=== PATIENT | male | born 1990 | race Caucasian/White ===

== ENCOUNTER 2017-04-29 18:06 | Emergency (ER) | payer OTHER ==
[~2017-04-29] VITALS: Ht 175.3 cm; Wt 83.1 kg
[2017-04-29 18:13] VITALS: TEMP 37.6; Ht 175.3 cm; Wt 83.1 kg
[2017-04-29] MEDS ORDERED: SODIUM CHLORIDE 0.9% 1000ML 1,000 ML IV STA ×2 (18:48→19:32)
[2017-04-29] MEDS ORDERED: MoRPHine SULFATE 4 MG/ML 1 ML CARP\\VIAL IV STA (18:48)
[2017-04-29] MEDS ORDERED: ONDANSETRON INJ 2 MG/ML 2 ML VIAL IV STA (18:48)
--- NOTE | 2017-04-29 19:04 | EMERGENCY ROOM VISIT NOTE ---
History Report prepared by Lavinia: José Luis Ovalle Under the Supervision of: Dr. Nic Brown M.D. First contact with patient: 18:15 Chief Complaint: DEHYDRATION Stated Complaint: FEELING DEHYDRATED, N/V Nursing Triage Summary: Pt reports "feeling sick" yesterday, worsening. pt c/o lower abd pain, n/v. 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 Positive light headedness, burning urinary symptoms, nausea, vomiting, and sweating. Negative leg swelling, penile discharge, cough, fever, chills, sore throat, or drinking well water. No one else is sick around him. He states that he cannot eat, and he smokes one cigarette per day. Source of History: patient Onset: two days ago Position: abdomen, other (global) Quality: sharp, other (dizziness) Timing: worsening Associated Symptoms: + nausea, + vomiting, + urinary symptoms, No fevers, No chills, No sorethroat, No cough Review of Systems See HPI for pertinent positives and negatives. A total of ten systems were reviewed and were otherwise negative. Past Medical & Surgical Medical Problems: (1) ADHD (2) PROSTATITIS NOS Surgical Problems: (1) H/O neck surgery Family History FH: heart disease Hypertension Social History Smoking Status: Former Smoker Marital Status: single Occupation Status: unemployed Current/Historical Medications Scheduled Dicyclomine Hcl (Bentyl), 20 MG PO QID Ondasetron Odt (Zofran Odt), 4 MG SL Q6H Tamsulosin Hcl (Flomax), 0.4 MG PO DAILY Allergies Coded Allergies: Amphetamine (Verified Allergy, Unknown, 04/29/17) Dextroamphetamine (Verified Allergy, Unknown, 04/29/17) Physical Exam Vital Signs Date Time Temp Pulse Resp B/P (MAP) Pulse Ox O2 Delivery O2 Flow Rate FiO2 04/29/17 20:59 99 16 150/84 97 04/29/17 20:11 76 16 144/94 99 Room Air 04/29/17 18:13 37.6 107 18 159/94 98 Room Air Physical Exam GENERAL: Awake, alert, well-appearing, NAD HENT: Normocephalic, atraumatic. EYES: Normal conjunctiva. Sclera non-icteric. NECK: Supple. No nuchal rigidity. FROM. RESPIRATORY: CTAB, no rhonchi, wheezing, crackles CARDIAC: RRR, no MRG ABDOMEN: Negative Obturator and Psoas. Suprapubic and RLQ TTP. Soft, ND, BS+ : Left testicle had no swelling, redness, lumps, or masses. MSK: No chest wall TTP, no LE edema NEURO: GCS 15, CN 2-12 intact, moves all 4s on command SKIN: No rash or jaundice noted. Medical Decision & Procedures Laboratory Results 04/29/17 19:15 Red Blood Count 4.99, Mean Corpuscular Volume 82.2, Mean Corpuscular Hemoglobin 28.7, Mean Corpuscular Hemoglobin Concent 34.9, Mean Platelet Volume 10.1, Neutrophils (%) (Auto) 75.6, Lymphocytes (%) (Auto) 11.6, Monocytes (%) (Auto) 11.1, Eosinophils (%) (Auto) 1.3, Basophils (%) (Auto) 0.3, Neutrophils # (Auto ) 5.73, Lymphocytes # (Auto) 0.88, Monocytes # (Auto) 0.84, Eosinophils # (Auto ) 0.10, Basophils # (Auto) 0.02 04/29/17 19:15 Test 04/29/17 19:15 04/29/17 19:20 White Blood Count 7.58 K/uL (4.8-10.8) Red Blood Count 4.99 M/uL (4.7-6.1) Hemoglobin 14.3 g/dL (14.0-18.0) Hematocrit 41.0 % (42-52) Mean Corpuscular Volume 82.2 fL (80-100) Mean Corpuscular Hemoglobin 28.7 pg (25-34) Mean Corpuscular Hemoglobin Concent 34.9 g/dl (32-36) Platelet Count 221 K/uL (130-400) Mean Platelet Volume 10.1 fL (7.4-10.4) Neutrophils (%) (Auto) 75.6 % Lymphocytes (%) (Auto) 11.6 % Monocytes (%) (Auto) 11.1 % Eosinophils (%) (Auto) 1.3 % Basophils (%) (Auto) 0.3 % Neutrophils # (Auto) 5.73 K/uL (1.4-6.5) Lymphocytes # (Auto) 0.88 K/uL (1.2-3.4) Monocytes # (Auto) 0.84 K/uL (0.11-0.59) Eosinophils # (Auto) 0.10 K/uL (0-0.5) Basophils # (Auto) 0.02 K/uL (0-0.2) RDW Standard Deviation 40.8 fL (36.4-46.3) RDW Coefficient of Variation 13.6 % (11.5-14.5) Immature Granulocyte % (Auto) 0.1 % Immature Granulocyte # (Auto) 0.01 K/uL (0.00-0.02) Anion Gap 5.0 mmol/L (3-11) Est Creatinine Clear Calc Drug Dose 144.2 ml/min Estimated GFR () 144.1 Estimated GFR (Non- 124.4 BUN/Creatinine Ratio 5.9 (10-20) Calcium Level 8.9 mg/dl (8.5-10.1) Phosphorus Level 2.9 mg/dl (2.5-4.9) Magnesium Level 2.0 mg/dl (1.8-2.4) Total Bilirubin 0.5 mg/dl (0.2-1) Direct Bilirubin 0.1 mg/dl (0-0.2) Aspartate Amino Transf (AST/SGOT) 12 U/L (15-37) Alanine Aminotransferase (ALT/SGPT) 25 U/L (12-78) Alkaline Phosphatase 80 U/L (45-117) Total Protein 7.4 gm/dl (6.4-8.2) Albumin 4.0 gm/dl (3.4-5.0) Lipase 83 U/L (73-393) Urine Color YELLOW Urine Appearance CLEAR (CLEAR) Urine pH 7.0 (4.5-7.5) Urine Specific [place] 1.013 (1.000-1.030) Urine Protein NEG (NEG) Urine Glucose (UA) NEG (NEG) Urine Ketones NEG (NEG) Urine Occult Blood 1+ (NEG) Urine Nitrite NEG (NEG) Urine Bilirubin NEG (NEG) Urine Urobilinogen NEG (NEG) Urine Leukocyte Esterase NEG (NEG) Urine WBC (Auto) 1-5 /hpf (0-5) Urine RBC (Auto) 5-10 /hpf (0-4) Urine Hyaline Casts (Auto) 0 /lpf (0-5) Urine Epithelial Cells (Auto) 5-10 /lpf (0-5) Urine Bacteria (Auto) NEG (NEG) Laboratory results reviewed by me Medications Administered Medications (Trade) Dose Ordered Sig/Bambi Route Start Time Stop Time Status Last Admin Dose Admin Sodium Chloride 1,000 ml @ 999 mls/hr Q1H1M STAT IV 04/29/17 18:48 04/29/17 19:48 DC 04/29/17 19:16 999 MLS/HR Morphine Sulfate (MoRPHine SULFATE INJ) 4 mg NOW STAT IV 04/29/17 18:48 04/29/17 18:50 DC 04/29/17 19:16 4 MG Ondansetron HCl (Zofran Inj) 4 mg NOW STAT IV 04/29/17 18:48 04/29/17 18:50 DC 04/29/17 19:16 4 MG Sodium Chloride 1,000 ml @ 999 mls/hr Q1H1M STAT IV 04/29/17 19:32 04/29/17 20:32 DC 04/29/17 20:04 999 MLS/HR Tramadol HCl (Ultram Tab) 50 mg NOW STAT PO 04/29/17 20:23 04/29/17 20:25 DC 04/29/17 20:23 50 MG Acetaminophen (Tylenol Tab) 1,000 mg NOW STAT PO 04/29/17 20:23 04/29/17 20:25 DC 04/29/17 20:23 1,000 MG ED Course 5: The patient was evaluated in room C7. A complete history and physical exam was performed. 2024: I reevaluated the patient. Discussed results and discharge instructions: He verbalized understanding and agreement. The patient is ready for discharge. Medical Decision The patient is a 27 year old white male with a past medical history of ADHD, finger surgery, and lump removal on his neck who presents to the ED with a cc of worsening dizziness and sharp lower abdominal pain beginning two days ago. Positive light headedness, burning urinary symptoms, nausea, vomiting, and sweating. Negative leg swelling, penile discharge, cough, fever, chills, sore throat, or drinking well water. Differential Diagnoses include: UTI, pyelonephritis, pancreatitis, hepatitis, and gastritis. Patient was seen and evaluated. Patient had blood work and was given IV fluids as well as pain control. Patient's blood work was fairly unremarkable. White count was normal and the elevations in LFTs or lipase. Given this less likely to be intra-abdominal source of possible infection. This may be viral gastroenteritis. Given the patient's urinary symptoms with blood and RBCs in his UA we decided to treat him as if he had a kidney stone. Kidney function normal at this time. Patient was told to take Flomax in the evening and to take Motrin Tylenol [id number] with restrictions on how much taken. Patient was feeling improved tolerated by mouth and had no episodes of vomiting. Patient was instructed follow-up, discharge, return precautions was discharged home. Medication Reconcilliation Current Medication List: was personally reviewed by me Blood Pressure Screening Patient's blood pressure: Elevated blood pressure Blood pressure disposition: Referred to PCP Impression Primary Impression: Viral gastroenteritis Additional Impressions: Kidney stone Encounter for smoking cessation counseling Scribe Attestation The scribe's documentation has been prepared under my direction and personally reviewed by me in its entirety. I confirm that the note above accurately reflects all work, treatment, procedures, and medical decision making performed by me. Departure Information Dispostion Home / Self-Care Prescriptions Tamsulosin Hcl (FLOMAX) 0.4 Mg Cap 0.4 MG PO DAILY, #10 CAP Prov: Nic Brown M.D. 04/29/17 Ondasetron Odt (ZOFRAN ODT) 4 Mg Tab 4 MG SL Q6H for Nausea, #6 TAB Prov: Nic Brown M.D. 04/29/17 Dicyclomine Hcl (BENTYL) 20 Mg Tab 20 MG PO QID for 7 Days, #28 TAB Prov: Nic Brown M.D. 04/29/17 Referrals No Doctor, Assigned (PCP) Forms HOME CARE DOCUMENTATION FORM, IMPORTANT VISIT INFORMATION, WORK / SCHOOL INSTRUCTIONS Patient Instructions Dehydration, ED Gastroenteritis Viral, Kidney Stones, Kidney Stones Expectant Therapy, My [facility] Additional Instructions Please return to the emergency department if you have worsening or recurrent symptoms not amenable to at-home treatment. Please call for a follow-up appointment with her primary care physician. Please take your medications as prescribed. If you have other concerns and/or complaints please feel free to also call your primary care physician's office or return the ED for further evaluation, management, and treatment. You may take Motrin up to 800 mg every 6 hours but no more than 3200 mg in a 24- hour period. Please take with food and do not take for more than 2 consecutive days. May take Tylenol 1000 mg every 6 hours and no more than 4000 mg in a 24- hour period. Work Instructions Return To Work: 1 day Problem Qualifiers
[2017-04-29 19:39] LABS: BASO % 0.3 %; BASO ABS # 0.02 K/uL (0-0.2); COMPLETE YES; EOS % 1.3 %; IG% 0.1 %; LYMPH % 11.6 %; LYMPH ABS # 0.88 K/uL (1.2-3.4); MEAN CELL VOLUME 82.2 fL (80-100); MEAN CORPUSCULAR HEMOGLOBIN 28.7 pg (25-34); MEAN CORPUSCULAR HGB CONC 34.9 g/dl (32-36); MEAN PLATELET VOLUME 10.1 fL (7.4-10.4); MONO % 11.1 %; NEUT % 75.6 %; PLATELET COUNT 221 K/uL (130-400); RED BLOOD COUNT 4.99 M/uL (4.7-6.1); WHITE BLOOD COUNT 7.58 K/uL (4.8-10.8)
[2017-04-29 19:41] LABS: URINE APPEARANCE CLEAR (CLEAR); URINE BILIRUBIN NEG (NEG); URINE COLOR YELLOW; URINE NITRITE NEG (NEG); URINE SPECIFIC GRAVITY 1.013 (1.000-1.030); UROBILINOGEN NEG (NEG); ZZUR CULT IF INDIC CLEAN CATCH NO
[2017-04-29 19:43] LABS: MANUAL MICROSCOPIC REQUIRED? NO; REVIEW REQ? NO
[2017-04-29 20:02] LABS: BUN/CREATININE RATIO 5.9 (10-20); CALCIUM 8.9 mg/dl (8.5-10.1); CREATININE 0.77 mg/dl (0.60-1.40); POTASSIUM 3.6 mmol/L (3.5-5.1)
[2017-04-29 20:06] LABS: PHOSPHORUS 2.9 mg/dl (2.5-4.9)
[2017-04-29] MEDS ORDERED: TRAMADOL HCL 50 MG TAB PO STA (20:23)
[2017-04-29] MEDS ORDERED: ACETAMINOPHEN 500 MG TAB PO STA (20:23)
[2017-04-29] MEDS ORDERED: DICY20TA35 PO (20:29)
[2017-04-29] MEDS ORDERED: ONDA4TAB10 SL (20:29)
[2017-04-29] MEDS ORDERED: DICYCLOMINE HCL 10 MG/ML 2 ML AMP IM ONE (20:30)
[2017-04-29] MEDS ORDERED: TAMS0.4C38 PO (20:38)
[2017-04-29 20:59] VITALS: BP 150/84; PULSE 99; O2SAT 97
== END 2017-04-29 20:45 | disposition home or self-care (01) ==
LOC: C.EDB 18:07 → C.EDC 20:45
DX: A08.4 Viral intestinal infection, unspecified (principal); N20.0 Calculus of kidney; F90.9 Attention-deficit hyperactivity disorder, unspecified type; N41.9 Inflammatory disease of prostate, unspecified; Z82.49 Family history of ischemic heart disease and other diseases of the circulatory system; Z87.891 Personal history of nicotine dependence

== ENCOUNTER 2017-06-22 15:52 | Emergency (ER) | payer OTHER ==
[~2017-06-22] VITALS: Ht 175.3 cm; Wt 84.2 kg
[~2017-06-22 15:52] MED LIST: ONDA4TAB10 SL
[2017-06-22 15:59] VITALS: Ht 175.3 cm; Wt 84.2 kg
[2017-06-22] MEDS ORDERED: SODIUM CHLORIDE 0.9% 1000ML 1,000 ML IV STA (16:44)
[2017-06-22] MEDS ORDERED: ONDANSETRON INJ 2 MG/ML 2 ML VIAL IV PRN (16:45)
--- NOTE | 2017-06-22 17:00 | EMERGENCY ROOM VISIT NOTE ---
History Report prepared by Lavinia: Shiraz Zapata Under the Supervision of: Dr. Brennan Valadez M.D. First contact with patient: 16:39 Chief Complaint: ABDOMINAL PAIN Stated Complaint: LOWER BACK/SIDE/CHEST PAIN Nursing Triage Summary: pt reports this morning awoke with R side pain that radiates up into chest , pt reports also burning and pain with urination . + nausea History of Present Illness The patient is a 27 year old male who presents to the Emergency Room with complaints of worsening right sided abdominal pain that started two days ago. He rates his pain as a 9/10 in severity. The patient states that he tried to ignore the pain, but the pain worsened. He reports that he usually can sleep through anything, but the patient states that the pain woke him up this morning. He reports that he was experiencing diaphoresis, chills, and worsening abdominal pain that started to radiate into his chest. The patient states that his last bowel movement was two days ago. He reports that he has been having troubles urinating and reports that his urination troubles worsened this morning. The patient reports that he has not been able to keep food or liquid down. He states that he has not been able to eat anything last night. The patient reports that he tried to drink Gatorade this morning and ended up vomiting it back up. He states that the chest and abdominal pain is not affected by urinating or any position.The patient admits that he had two sips of alcohol three days ago but reports that he has not heavily consumed alcohol in two years. The patient denies fever and leg pain. Source of History: patient Onset: two days ago Position: abdomen (right side) Symptom Intensity: 9/10 Timing: worsening Associated Symptoms: + chills, + diaphoresis, + chest pain, + vomiting, No fevers Review of Systems All systems have been listed, reviewed, and are negative other than those previously mentioned. Please see Additional Medical History Sheet. Past Medical & Surgical Medical Problems: (1) ADHD (2) PROSTATITIS NOS Surgical Problems: (1) H/O neck surgery Family History FH: heart disease Hypertension Social History Smoking Status: Never Smoker Marital Status: single Occupation Status: unemployed Current/Historical Medications Scheduled PRN Ibuprofen Tab (Advil), 400 MG PO Q6H PRN for Pain Ibuprofen Tab (Motrin), 600 MG PO Q6H PRN for Pain Allergies Coded Allergies: Amphetamine (Verified Allergy, Unknown, 04/29/17) Dextroamphetamine (Verified Allergy, Unknown, 04/29/17) Physical Exam Vital Signs Date Time Temp Pulse Resp B/P (MAP) Pulse Ox O2 Delivery O2 Flow Rate FiO2 06/22/17 21:14 37.0 60 18 153/86 96 06/22/17 20:32 153/86 06/22/17 19:36 143/78 06/22/17 19:36 60 18 143/78 96 Room Air 06/22/17 19:27 62 17 95 06/22/17 19:01 149/93 06/22/17 18:57 70 17 96 06/22/17 17:52 74 17 98 06/22/17 17:47 74 14 95 06/22/17 17:42 64 13 95 06/22/17 17:37 63 10 97 06/22/17 17:32 67 22 97 06/22/17 17:31 146/105 06/22/17 17:30 67 06/22/17 17:10 143/88 06/22/17 15:59 37.0 90 20 151/90 98 Room Air Physical Exam GENERAL: Patient awake, alert, oriented x 3. Patient follows commands. Patient does not appear toxic. Patient is adequately hydrated and well- nourished. SKIN: No erythema, pallor, cyanosis or rash HEENT: Normal head, pupils equal, reactive to light and accommodation. LUNGS: Clear to auscultation. No wheezes, no rales, no rhonchi. HEART: No murmurs. No gallops. No rubs ABDOMEN: Tenderness along whole right side. Point tenderness over McBurney's point. No masses, no rebound, no hepatomegaly or splenomegaly. EXTREMITIES: No signs of trauma. No pedal or pretibial edema. No calf or thigh tenderness. No signs of trauma or infection. NEUROLOGIC: Cranial nerves II-XII within normal limits. No gross motor sensory function deficits. Medical Decision & Procedures ER Provider Diagnostic Interpretation: Radiology results as stated below per my review and radiologist interpretation: APPENDIX ULTRASOUND HISTORY: Right lower quadrant abdominal pain. COMPARISON: None. FINDINGS: Transabdominal scanning of the right lower quadrant was performed. The appendix was not identified. There are no fluid collections or masses within the right lower quadrant. IMPRESSION: The appendix was not identified. Electronically signed by: Yung Sampson M.D. 06/22/2017 6:23 PM Dictated Date/Time: 06/22/2017 6:23 PM ABD/PELVIS IV AND ORAL CONT CLINICAL HISTORY: 27 years-old Male presenting with RLQ PAIN. TECHNIQUE: Multidetector CT of the abdomen and pelvis was performed after the administration of oral and intravenous contrast. IV contrast: 117 mL of Optiray 320. A dose lowering technique was used consistent with the principles of ALARA (as low as reasonably achievable). COMPARISON: 08/20/2012. CT DOSE (mGy.cm): The estimated cumulative dose is 377.19 mGy.cm. FINDINGS: Craft Recruiter topogram: Unremarkable. Lung bases: Lung bases clear. Normal heart size. No pericardial or pleural effusion. Liver: Normal morphology. No liver lesion. Patent hepatic vasculature. Biliary: No intrahepatic or extrahepatic biliary ductal dilatation. Normal gallbladder. Pancreas: Normal. Spleen: Normal. Adrenal glands: Normal. Kidneys and ureters: Normal. No hydronephrosis. Bladder: Normal. Pelvic organs: Normal. Bowel: Normal appendix. No bowel obstruction. Peritoneal cavity: No free fluid or intraperitoneal gas. Lymph nodes: No enlarged lymph nodes in the abdomen or pelvis. Vasculature: Aorta and IVC patent and normal in caliber. Abdominal wall: Normal. Musculoskeletal: Normal. IMPRESSION: 1. No acute intra-abdominal pathology. No appendicitis. Electronically signed by: Manuel Iverson M.D. 06/22/2017 7:59 PM Dictated Date/Time: 06/22/2017 7:54 PM Laboratory Results 06/22/17 17:15 Red Blood Count 5.61, Mean Corpuscular Volume 82.7, Mean Corpuscular Hemoglobin 29.1, Mean Corpuscular Hemoglobin Concent 35.1, Mean Platelet Volume 9.6, Neutrophils (%) (Auto) 57.6, Lymphocytes (%) (Auto) 26.3, Monocytes (%) (Auto) 10.7, Eosinophils (%) (Auto) 4.6, Basophils (%) (Auto) 0.6, Neutrophils # (Auto ) 3.13, Lymphocytes # (Auto) 1.43, Monocytes # (Auto) 0.58, Eosinophils # (Auto ) 0.25, Basophils # (Auto) 0.03 06/22/17 17:15 Test 06/22/17 17:15 06/22/17 17:55 White Blood Count 5.43 K/uL (4.8-10.8) Red Blood Count 5.61 M/uL (4.7-6.1) Hemoglobin 16.3 g/dL (14.0-18.0) Hematocrit 46.4 % (42-52) Mean Corpuscular Volume 82.7 fL (80-100) Mean Corpuscular Hemoglobin 29.1 pg (25-34) Mean Corpuscular Hemoglobin Concent 35.1 g/dl (32-36) Platelet Count 264 K/uL (130-400) Mean Platelet Volume 9.6 fL (7.4-10.4) Neutrophils (%) (Auto) 57.6 % Lymphocytes (%) (Auto) 26.3 % Monocytes (%) (Auto) 10.7 % Eosinophils (%) (Auto) 4.6 % Basophils (%) (Auto) 0.6 % Neutrophils # (Auto) 3.13 K/uL (1.4-6.5) Lymphocytes # (Auto) 1.43 K/uL (1.2-3.4) Monocytes # (Auto) 0.58 K/uL (0.11-0.59) Eosinophils # (Auto) 0.25 K/uL (0-0.5) Basophils # (Auto) 0.03 K/uL (0-0.2) RDW Standard Deviation 40.1 fL (36.4-46.3) RDW Coefficient of Variation 13.4 % (11.5-14.5) Immature Granulocyte % (Auto) 0.2 % Immature Granulocyte # (Auto) 0.01 K/uL (0.00-0.02) Anion Gap 6.0 mmol/L (3-11) Est Creatinine Clear Calc Drug Dose 122.0 ml/min Estimated GFR () 133.4 Estimated GFR (Non- 115.1 BUN/Creatinine Ratio 16.3 (10-20) Calcium Level 9.6 mg/dl (8.5-10.1) Total Bilirubin 0.3 mg/dl (0.2-1) Aspartate Amino Transf (AST/SGOT) 15 U/L (15-37) Alanine Aminotransferase (ALT/SGPT) 25 U/L (12-78) Alkaline Phosphatase 75 U/L (45-117) Troponin I < 0.015 ng/ml (0-0.045) Total Protein 8.1 gm/dl (6.4-8.2) Albumin 4.4 gm/dl (3.4-5.0) Globulin 3.7 gm/dl (2.5-4.0) Albumin/Globulin Ratio 1.2 (0.9-2) Lipase 129 U/L (73-393) Urine Color YELLOW Urine Appearance CLEAR (CLEAR) Urine pH 7.0 (4.5-7.5) Urine Specific [place] 1.022 (1.000-1.030) Urine Protein NEG (NEG) Urine Glucose (UA) NEG (NEG) Urine Ketones NEG (NEG) Urine Occult Blood NEG (NEG) Urine Nitrite NEG (NEG) Urine Bilirubin NEG (NEG) Urine Urobilinogen NEG (NEG) Urine Leukocyte Esterase NEG (NEG) Laboratory results as stated above per my review. Medications Administered Medications (Trade) Dose Ordered Sig/Bambi Route Start Time Stop Time Status Last Admin Dose Admin Sodium Chloride 1,000 ml @ 300 mls/hr Q3H20M STAT IV 06/22/17 16:44 06/22/17 20:03 DC 06/22/17 17:35 300 MLS/HR Morphine Sulfate (MoRPHine SULFATE INJ) 6 mg PRN PRN IV 06/22/17 16:45 06/22/17 21:24 DC 06/22/17 18:50 6 MG Ondansetron HCl (Zofran Inj) 4 mg Q4H PRN IV 06/22/17 16:45 06/22/17 21:24 DC 06/22/17 17:32 4 MG Polyethylene (Miralax Powder Packet) 17 gm NOW ONCE PO 06/22/17 20:45 06/22/17 20:46 DC 06/22/17 20:45 17 GM Ibuprofen (Ibuprofen 600mg Home Pack) 1 homepack UD ONCE PO 06/22/17 20:45 06/22/17 20:46 DC 06/22/17 20:45 1 HOMEPACK ECG Indication: chest pain Rate (beats per minute): 67 Rhythm: sinus with SA Findings: no acute ischemic change, other (Normal axis) ED Course 1640: Past medical records reviewed. The patient was evaluated in room B03. A complete history and physical examination was performed. 1644: Ordered Sodium Chloride 1000 ml @ 300 mls/hr Iv. 1644: Ordered Zofran Injection 4 mg IV, Morphine Sulfate 6 mg IV. 2034: Upon reevaluation, the patient appeared to have improvement of his symptoms. I discussed today's findings with the patient and his family. He verbalized agreement of the treatment plan. The patient was discharged home. 2044: Ordered Ibuprofen 1 homepack PO, Polyethylene 17 gm PO. Medical Decision Nurses notes reviewed. Medical history sheet reviewed. Differential diagnosis includes but is not limited to: acute appendicitis, peptic/gastric ulcer disease , cholelithiasis, cholecystitis, and gastroenteritis. Multiple labs, urinalysis, ultrasound and CT were obtained. Please see above. The appendix was not visualized on the ultrasound and therefore CT followed. No appendicitis was found. White count is not elevated. Urinalysis is clean. The patient may have constipation as he has not has a good bowel movement for the past 2 days. The patient was given a dose of MiraLAX here. The patient was given a note for work for tomorrow. He is to take ibuprofen for pain. He is to drink extra fluids. Medication Reconcilliation Current Medication List: was personally reviewed by me Blood Pressure Screening Patient's blood pressure: Elevated blood pressure Blood pressure disposition: Elevated BP felt to be situational Impression Primary Impression: Right sided abdominal pain Additional Impression: Constipation Scribe Attestation The scribe's documentation has been prepared under my direction and personally reviewed by me in its entirety. I confirm that the note above accurately reflects all work, treatment, procedures, and medical decision making performed by me. Departure Information Dispostion Home / Self-Care Prescriptions Ibuprofen Tab (MOTRIN) 600 Mg Tab 600 MG PO Q6H Y for Pain, #20 TAB Prov: Brennan Valadez M.D. 06/22/17 Referrals No Doctor, Assigned (PCP) Patient Instructions My [facility] Additional Instructions Off work 06/23/17. 600 mg ibuprofen every 6 hours as needed for pain. Drink extra fluids. Follow-up with a family physician or return here in 2 days if symptoms are not subsiding. Problem Qualifiers
[2017-06-22] MEDS ORDERED: IBUP-103 PO (17:22)
[2017-06-22 17:26] LABS: BASO % 0.6 %; BASO ABS # 0.03 K/uL (0-0.2); COMPLETE YES; EOS % 4.6 %; HEMATOCRIT 46.4 % (42-52); IG% 0.2 %; LYMPH % 26.3 %; LYMPH ABS # 1.43 K/uL (1.2-3.4); MEAN CELL VOLUME 82.7 fL (80-100); MEAN CORPUSCULAR HEMOGLOBIN 29.1 pg (25-34); MEAN CORPUSCULAR HGB CONC 35.1 g/dl (32-36); MEAN PLATELET VOLUME 9.6 fL (7.4-10.4); MONO % 10.7 %; NEUT % 57.6 %; PLATELET COUNT 264 K/uL (130-400); RED BLOOD COUNT 5.61 M/uL (4.7-6.1); WHITE BLOOD COUNT 5.43 K/uL (4.8-10.8)
[2017-06-22] MEDS: MoRPHine SULFATE 10 MG/ML CARP/VIAL IV PRN ×2 (17:34→18:50)
[2017-06-22 17:42] LABS: ALT/SGPT 25 U/L (12-78); BLOOD UREA NITROGEN 15 mg/dl (7-18); BUN/CREATININE RATIO 16.3 (10-20); CALCIUM 9.6 mg/dl (8.5-10.1); CARBON DIOXIDE 28 mmol/L (21-32); CHLORIDE 104 mmol/L (98-107); CREATININE 0.91 mg/dl (0.60-1.40); GLUCOSE 95 mg/dl (70-99); SODIUM 138 mmol/L (136-145)
[2017-06-22 17:47] LABS: ALB/GLOB RATIO 1.2 (0.9-2); ALKALINE PHOSPHATASE 75 U/L (45-117); AST/SGOT 15 U/L (15-37)
[2017-06-22 18:06] LABS: URINE APPEARANCE CLEAR (CLEAR); URINE BILIRUBIN NEG (NEG); URINE COLOR YELLOW; URINE NITRITE NEG (NEG); URINE SPECIFIC GRAVITY 1.022 (1.000-1.030); UROBILINOGEN NEG (NEG); ZZUR CULT IF INDIC CLEAN CATCH NO
[2017-06-22 18:10] LABS: MANUAL MICROSCOPIC REQUIRED? NO; REVIEW REQ? NO
--- NOTE | 2017-06-22 18:25 | DIAGNOSTIC IMAGING REPORT ---
APPENDIX ULTRASOUND HISTORY: Right lower quadrant abdominal pain. COMPARISON: None. FINDINGS: Transabdominal scanning of the right lower quadrant was performed. The appendix was not identified. There are no fluid collections or masses within the right lower quadrant. IMPRESSION: The appendix was not identified. Electronically signed by: Yung Sampson M.D. 06/22/2017 6:23 PM Dictated Date/Time: 06/22/2017 6:23 PM
[2017-06-22] MEDS ORDERED: OPTIRAY 320 IV PRN (19:30)
--- NOTE | 2017-06-22 20:00 | DIAGNOSTIC IMAGING REPORT ---
ABD/PELVIS IV AND ORAL CONT CLINICAL HISTORY: 27 years-old Male presenting with RLQ PAIN. TECHNIQUE: Multidetector CT of the abdomen and pelvis was performed after the administration of oral and intravenous contrast. IV contrast: 117 mL of Optiray 320. A dose lowering technique was used consistent with the principles of ALARA (as low as reasonably achievable). COMPARISON: 08/20/2012. CT DOSE (mGy.cm): The estimated cumulative dose is 377.19 mGy.cm. FINDINGS: Box Toe Stitcher topogram: Unremarkable. Lung bases: Lung bases clear. Normal heart size. No pericardial or pleural effusion. Liver: Normal morphology. No liver lesion. Patent hepatic vasculature. Biliary: No intrahepatic or extrahepatic biliary ductal dilatation. Normal gallbladder. Pancreas: Normal. Spleen: Normal. Adrenal glands: Normal. Kidneys and ureters: Normal. No hydronephrosis. Bladder: Normal. Pelvic organs: Normal. Bowel: Normal appendix. No bowel obstruction. Peritoneal cavity: No free fluid or intraperitoneal gas. Lymph nodes: No enlarged lymph nodes in the abdomen or pelvis. Vasculature: Aorta and IVC patent and normal in caliber. Abdominal wall: Normal. Musculoskeletal: Normal. IMPRESSION: 1. No acute intra-abdominal pathology. No appendicitis. Electronically signed by: Manuel Iverson M.D. 06/22/2017 7:59 PM Dictated Date/Time: 06/22/2017 7:54 PM
[2017-06-22] MEDS ORDERED: IBUP-1427 PO (20:41)
[2017-06-22] MEDS ORDERED: POLYETHYLENE (MIRALAX) 17 GM PACK PO ONE (20:45)
[2017-06-22] MEDS ORDERED: MOTRIN HOME PACK 600 MG (4)BTL PO ONE (20:45)
[2017-06-22 21:14] VITALS: BP 153/86; PULSE 60; TEMP 37; O2SAT 96
== END 2017-06-22 21:16 | disposition home or self-care (01) ==
LOC: C.EDB 15:53
DX: R10.31 Right lower quadrant pain (principal); R07.9 Chest pain, unspecified; K59.00 Constipation, unspecified; F90.9 Attention-deficit hyperactivity disorder, unspecified type; R33.9 Retention of urine, unspecified

== ENCOUNTER 2017-08-25 18:16 | Emergency (ER) | payer SELFPAY ==
[~2017-08-25] VITALS: Ht 175.3 cm; Wt 85.6 kg
[~2017-08-25 18:16] MED LIST changes: +IBUP-103 PO; +IBUP-1427 PO; -ONDA4TAB10 SL
[2017-08-25 18:21] VITALS: TEMP 37.1; Ht 175.3 cm; Wt 85.6 kg
[2017-08-25] MEDS ORDERED: KETOROLAC TROMETHAMINE 60 MG/2 ML VIAL IM STA (18:41)
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
--- NOTE | 2017-08-25 20:08 | DIAGNOSTIC IMAGING REPORT ---
L HIP UNILATERAL 2 VIEWS CLINICAL HISTORY: Left hip pain. COMPARISON: CT of the abdomen and pelvis June 22, 2017. FINDINGS: Alignment of the left hip is anatomic. There is no fracture or suspicious lesion. Joint space is preserved. There is no evidence for avascular necrosis. IMPRESSION: Normal left hip radiographs. Electronically signed by: Stuart Zhang M.D. 08/25/2017 8:07 PM Dictated Date/Time: 08/25/2017 8:06 PM
--- NOTE | 2017-08-25 20:09 | DIAGNOSTIC IMAGING REPORT ---
L KNEE 3 VIEWS CLINICAL HISTORY: Left knee pain and numbness. COMPARISON: Left tibia and fibula radiographs February 23, 2012. FINDINGS: Alignment of left knee is anatomic. Joint spaces are preserved. No fracture or osseous lesion is present. There is no joint effusion. IMPRESSION: Normal left knee radiographs. Electronically signed by: Stuart Zhang M.D. 08/25/2017 8:07 PM Dictated Date/Time: 08/25/2017 8:07 PM
--- NOTE | 2017-08-25 20:33 | DIAGNOSTIC IMAGING REPORT ---
LEFT LOWER EXTREMITY VENOUS DOPPLER CLINICAL HISTORY: Left leg pain and numbness. COMPARISON STUDY: No previous studies for comparison. TECHNIQUE: Sonography of the deep venous system of the left lower extremity was performed. Compression and augmentation were evaluated. FINDINGS: The left common femoral, superficial femoral and popliteal veins were compressible. Augmentation was normal. Flow was shown within the deep calf vessels. IMPRESSION: No evidence of deep venous thrombus within the left lower extremity. Electronically signed by: Stuart Zhang M.D. 08/25/2017 8:31 PM Dictated Date/Time: 08/25/2017 8:31 PM
[2017-08-25 21:10] VITALS: BP 141/74; PULSE 85; O2SAT 98
== END 2017-08-25 21:12 | disposition home or self-care (01) ==
LOC: C.EDB 18:17 → C.EDD 21:12
DX: M79.605 Pain in left leg (principal); R20.0 Anesthesia of skin; R20.2 Paresthesia of skin; M25.562 Pain in left knee; F17.220 Nicotine dependence, chewing tobacco, uncomplicated

== ENCOUNTER 2017-10-25 15:42 | Emergency (ER) | payer OTHER ==
[~2017-10-25] VITALS: Ht 175.3 cm; Wt 85.3 kg
[~2017-10-25 15:42] MED LIST changes: -IBUP-1427 PO
[2017-10-25 16:00] VITALS: TEMP 36.9; Ht 175.3 cm; Wt 85.3 kg
[2017-10-25] MEDS ORDERED: SODIUM CHLORIDE 0.9% 500ML 500 ML IV STA (17:09)
[2017-10-25] MEDS ORDERED: ONDANSETRON INJ 2 MG/ML 2 ML VIAL IV PRN (17:15)
[2017-10-25] MEDS ORDERED: GI COCKTAIL PO ONE (17:15)
[2017-10-25] MEDS ORDERED: LIDOCAINE HCL 2% VISC SOLN 20 ML UDC ONE (17:19)
[2017-10-25] MEDS ORDERED: ALUMINUM/MAGNESIUM SUSP 30 ML UDC ONE (17:19)
[2017-10-25] MEDS: MoRPHine SULFATE 4 MG/ML 1 ML CARP\\VIAL IV PRN ×2 (17:28→20:09)
--- NOTE | 2017-10-25 17:35 | EMERGENCY ROOM VISIT NOTE ---
History First contact with patient: 16:58 Chief Complaint: CHEST PAIN Stated Complaint: CHEST PAINS, LOWER STOMACH PAINS, SIDE PAINS Nursing Triage Summary: Pt c/o "not really feeling good, I've been having pain in my lower stomach that goes into my back but today the pain is in my lower stomach, back and chest and I puke and I get cold sweats." Associates Diarrhea History of Present Illness The patient is a 27 year old male who presents to the Emergency Room with complaints of right upper and epigastric abdominal pain that has been intermittent since Thursday. The pain is described as a sharp, stabbing sensation that radiates into the right side of his chest. He has also been nauseated with several episodes of vomiting. His last bowel movement was reportedly 5 days ago. He says that it was loose. The patient denies any difficulty breathing. No recent illnesses such as cough or fever. He has taken ibuprofen with moderate pain relief. Review of Systems 10 system review performed and negative unless noted in HPI or below Past Medical/Surgical History Medical Problems: (1) ADHD (2) PROSTATITIS NOS Surgical Problems: (1) H/O neck surgery Family History FH: heart disease Hypertension Social History Smoking Status: Current Some Day Smoker Marital Status: single Occupation Status: unemployed Current/Historical Medications Scheduled Pantoprazole (Protonix), 1 TAB PO BID Physical Exam Vital Signs Date Time Temp Pulse Resp B/P (MAP) Pulse Ox O2 Delivery O2 Flow Rate FiO2 10/25/17 20:09 72 16 123/70 99 10/25/17 18:58 70 16 158/95 97 Room Air 10/25/17 17:32 97 Room Air 10/25/17 17:25 72 18 155/94 97 Room Air 10/25/17 17:17 75 10/25/17 16:00 36.9 85 16 166/90 96 Room Air Physical Exam VITALS: Vitals are noted on the nurse's note and reviewed by myself. Vital signs stable. GENERAL: 27-year-old male, in no acute distress, nondiaphoretic, well-developed well-nourished. SKIN: The skin was without rashes, erythema, edema, or bruising. HEAD: Normocephalic atraumatic. MOUTH: Mucous membranes moist. NECK: Supple without nuchal rigidity. No lymphadenopathy. Cervical spine is nontender. No JVD. HEART: Regular rate and rhythm without murmurs gallops or rubs. LUNGS: Clear to auscultation bilaterally without wheezes, rales or rhonchi. No accessory muscle use. No tenderness over the thorax ABDOMEN: Positive bowel sounds x 4.Soft, tenderness to palpation in the epigastric region and particularly the right upper quadrant without organomegaly. No guarding or rebound tenderness. MUSCULOSKELETAL: No muscle atrophy, erythema, or edema noted. Strength 5/5 throughout. NEURO: Patient was alert and oriented to person place and time. Normal sensation to touch. No focal neurological deficits. Medical Decision & Procedures ER Provider Diagnostic Interpretation: Chest/abdominal x-rays. IMPRESSION: Normal study. The above report was generated using voice recognition software. It may contain grammatical, syntax or spelling errors. Electronically signed by: Mauricio Collazo M.D. 10/25/2017 7:03 PM GB US IMPRESSION: Several small gallbladder polyps. Mild fatty infiltration of liver. Otherwise negative study. The above report was generated using voice recognition software. It may contain grammatical, syntax or spelling errors. Electronically signed by: Mauricio Collazo M.D. 10/25/2017 6:50 PM Dictated Date/Time: 10/25/2017 6:49 PM The status of this report is Signed. Draft = Not yet reviewed or approved by Radiologist. Signed = Reviewed and approved by Radiologist. <AttendingPhy></AttendingPhy> <FamilyPhy>No Doctor, Assigned</FamilyPhy> < PrimaryPhy>No Doctor, Assigned</PrimaryPhy> <UnitNumber>[id number]</UnitNumber> <VisitNumber>[id number]</VisitNumber> <PatientName>GABY JUAREZ JR</ PatientName> <DateOfBirth>1990</DateOfBirth> <Location>[facility]</Location> < ServiceDate>10/25/17</ServiceDate> <MNE>ESINDI</MNE> <OrderingPhy>Lissy Perez PA-C</OrderingPhy> <OrderingPhyMNE>f rep ord mne</OrderingPhyMNE> < DictatingPhyMNE>f rep dict mne</DictatingPhyMNE> <CCListMNE>f rep ct mne</ CCListMNE> <AdmittingPhyMNE>f pt admit dr pollock</AdmittingPhyMNE> <AttendingPhyMNE >f pt attend dr pollock</AttendingPhyMNE> <ConsultingPhyMNE>f pt consult dr pollock</ConsultingPhyMNE> <FamilyPhyMNE>f pt fam dr pollock</FamilyPhyMNE> <OtherPhyMNE>f pt other dr pollock</OtherPhyMNE> < PrimaryPhyMNE>f pt prim care dr pollock</PrimaryPhyMNE> <ReferringPhyMNE>f pt referring dr pollock</ReferringPhyMNE> Laboratory Results 10/25/17 17:25 Red Blood Count 5.03, Mean Corpuscular Volume 82.9, Mean Corpuscular Hemoglobin 28.8, Mean Corpuscular Hemoglobin Concent 34.8, Mean Platelet Volume 9.6, Neutrophils (%) (Auto) 47.8, Lymphocytes (%) (Auto) 31.9, Monocytes (%) (Auto) 10.8, Eosinophils (%) (Auto) 8.8, Basophils (%) (Auto) 0.7, Neutrophils # (Auto ) 2.83, Lymphocytes # (Auto) 1.89, Monocytes # (Auto) 0.64, Eosinophils # (Auto ) 0.52, Basophils # (Auto) 0.04 10/25/17 17:25 Test 10/25/17 17:25 White Blood Count 5.92 K/uL (4.8-10.8) Red Blood Count 5.03 M/uL (4.7-6.1) Hemoglobin 14.5 g/dL (14.0-18.0) Hematocrit 41.7 % (42-52) Mean Corpuscular Volume 82.9 fL (80-100) Mean Corpuscular Hemoglobin 28.8 pg (25-34) Mean Corpuscular Hemoglobin Concent 34.8 g/dl (32-36) Platelet Count 260 K/uL (130-400) Mean Platelet Volume 9.6 fL (7.4-10.4) Neutrophils (%) (Auto) 47.8 % Lymphocytes (%) (Auto) 31.9 % Monocytes (%) (Auto) 10.8 % Eosinophils (%) (Auto) 8.8 % Basophils (%) (Auto) 0.7 % Neutrophils # (Auto) 2.83 K/uL (1.4-6.5) Lymphocytes # (Auto) 1.89 K/uL (1.2-3.4) Monocytes # (Auto) 0.64 K/uL (0.11-0.59) Eosinophils # (Auto) 0.52 K/uL (0-0.5) Basophils # (Auto) 0.04 K/uL (0-0.2) RDW Standard Deviation 41.0 fL (36.4-46.3) RDW Coefficient of Variation 13.7 % (11.5-14.5) Immature Granulocyte % (Auto) 0.0 % Immature Granulocyte # (Auto) 0.00 K/uL (0.00-0.02) D-Dimer 190 ug/L FEU (0-500) Anion Gap 7.0 mmol/L (3-11) Est Creatinine Clear Calc Drug Dose 126.5 ml/min Estimated GFR () 126.6 Estimated GFR (Non- 109.3 BUN/Creatinine Ratio 10.5 (10-20) Calcium Level 8.8 mg/dl (8.5-10.1) Total Bilirubin 0.2 mg/dl (0.2-1) Aspartate Amino Transf (AST/SGOT) 16 U/L (15-37) Alanine Aminotransferase (ALT/SGPT) 26 U/L (12-78) Alkaline Phosphatase 63 U/L (45-117) Troponin I < 0.015 ng/ml (0-0.045) Total Protein 7.1 gm/dl (6.4-8.2) Albumin 3.8 gm/dl (3.4-5.0) Globulin 3.3 gm/dl (2.5-4.0) Albumin/Globulin Ratio 1.2 (0.9-2) Lipase 88 U/L (73-393) Medications Administered Medications (Trade) Dose Ordered Sig/Bambi Route Start Time Stop Time Status Last Admin Dose Admin Morphine Sulfate (MoRPHine SULFATE INJ) 4 mg Q1H PRN IV 10/25/17 17:15 10/25/17 21:01 DC 10/25/17 20:09 4 MG Ondansetron HCl (Zofran Inj) 4 mg Q2H PRN IV 2/11/18 17:15 10/25/17 21:01 DC 10/25/17 17:27 4 MG Sodium Chloride 500 ml @ 999 mls/hr Q31M STAT IV 10/25/17 17:09 10/25/17 17:39 DC 10/25/17 17:28 999 MLS/HR Al Hydroxide/Mg Hydroxide (Maalox Susp) 30 ml STK-MED ONCE .ROUTE 10/25/17 17:19 10/25/17 17:20 DC 10/25/17 17:28 30 ML Lidocaine HCl (Viscous Lidocaine 2% Soln) 20 ml STK-MED ONCE .ROUTE 10/25/17 17:19 10/25/17 17:20 DC 10/25/17 17:28 20 ML Pantoprazole Sodium 40 mg/ Syringe 10 ml @ 5 mls/min NOW ONCE IV 10/25/17 19:30 10/25/17 19:31 DC 10/25/17 19:41 5 MLS/MIN ECG Indication: chest pain Rate (beats per minute): 73 Rhythm: normal sinus ED Course Patient was seen and examined Vital signs including blood pressure were reviewed medications list was verified with patient Labs were obtained, and a saline lock was established The patient was medicated with morphine, Zofran and a GI cocktail. He was hydrated with 500 mL normal saline. Imaging was performed and reviewed Upon reassessment, the patient was more comfortable. We discussed his workup at length. He voiced understanding, is comfortable being discharged home. He was given 1 dose of pantoprazole IV. He was also given a pack of tramadol. The case was discussed with my supervising physician who is in agreement with my plan. I reviewed discharge instructions the patient. They voiced understanding and had no further questions. Medical Decision Differential diagnosis: Gastritis, pancreatitis, choledocholithiasis, cholecystitis, pulmonary embolus, cardiac disease, pneumothorax, pneumonia This patient is a 27-year-old male that presents to the emergency department with upper abdominal pain radiating to his chest. On exam, he was tender in the right upper quadrant. He was nontoxic in appearance. His labs reveal no leukocytosis. LFTs and lipase are within normal limits. Troponin and d-dimer also negative. EKG shows no signs of ischemia. Chest x-ray/abdominal x-rays are normal. An ultrasound of the gallbladder did not show any gallstones. My thought is this is possibly related to a gastritis/GERD. The patient was treated with pantoprazole. I will put him on a 2 week course of pantoprazole. He was encouraged to follow-up with his primary care physician. He agrees to call tomorrow for a follow-up appointment. If he does not improve in the next week, he will also call a GI doctor. A number has been provided for him. He agrees to return to the emergency department with any new or worsening symptoms. This chart was completed in part utilizing [employer] Speech Voice Recognition software. Attempts were made to minimize the grammatical errors, random word insertions, pronoun errors and incomplete sentences. Any formal questions or concerns about the content, text or information contained within the body of this dictation should be directly addressed to the provider for clarification. Medication Reconcilliation Current Medication List: was personally reviewed by me Blood Pressure Screening Patient's blood pressure: Normal blood pressure Blood pressure disposition: Referred to PCP Impression Primary Impression: Abdominal pain Departure Information Dispostion Home / Self-Care Condition GOOD Prescriptions Pantoprazole (PROTONIX) 40 Mg Tab 1 TAB PO BID for 14 Days, #28 TAB 3 Refills Prov: Lissy Perez PA-C 10/25/17 Referrals No Doctor, Assigned (PCP) Joseluis Llamas D.O. Patient Instructions [facility] Additional Instructions You have been evaluated in the emergency department for chest pain and abdominal pain. Imaging was performed and did not show any signs of gallstones. It is possible that the pain is resulting from acid reflux. Please take pantoprazole as directed. Please avoid spicy and acidic fluids. Please also avoid alcohol. Do not take pain relievers in the NSAID class such as ibuprofen, Motrin, Aleve, naproxen. Please follow-up with her primary care physician as soon as possible. If the pain persists, you should also see a GI specialist. A number has been provided for Dr. Llamas Do not hesitate to return to the emergency room with any new, worsening or concerning symptoms; especially, difficulty breathing, severe abdominal pain or worsening chest pain Work Instructions Return To Work: 1 day
[2017-10-25 17:43] LABS: BASO % 0.7 %; BASO ABS # 0.04 K/uL (0-0.2); EOS % 8.8 %; EOS ABS # 0.52 K/uL (0-0.5); HEMATOCRIT 41.7 % (42-52); HEMOGLOBIN 14.5 g/dL (14.0-18.0); LYMPH % 31.9 %; LYMPH ABS # 1.89 K/uL (1.2-3.4); MEAN CELL VOLUME 82.9 fL (80-100); MEAN CORPUSCULAR HEMOGLOBIN 28.8 pg (25-34); MEAN CORPUSCULAR HGB CONC 34.8 g/dl (32-36); MEAN PLATELET VOLUME 9.6 fL (7.4-10.4); MONO % 10.8 %; MONO ABS # 0.64 K/uL (0.11-0.59); NEUT % 47.8 %; NEUT ABS # 2.83 K/uL (1.4-6.5); PLATELET COUNT 260 K/uL (130-400); RED CELL DISTRIBUTION WIDTH CV 13.7 % (11.5-14.5); WHITE BLOOD COUNT 5.92 K/uL (4.8-10.8)
[2017-10-25 18:02] LABS: ALBUMIN 3.8 gm/dl (3.4-5.0); ALT/SGPT 26 U/L (12-78); BLOOD UREA NITROGEN 10 mg/dl (7-18); CALCIUM 8.8 mg/dl (8.5-10.1); CARBON DIOXIDE 29 mmol/L (21-32); CREATININE 0.95 mg/dl (0.60-1.40); GLUCOSE 95 mg/dl (70-99); LIPASE 88 U/L (73-393); POTASSIUM 3.7 mmol/L (3.5-5.1); SODIUM 137 mmol/L (136-145)
[2017-10-25 18:07] LABS: ALKALINE PHOSPHATASE 63 U/L (45-117); AST/SGOT 16 U/L (15-37); TOTAL PROTEIN 7.1 gm/dl (6.4-8.2)
--- NOTE | 2017-10-25 18:51 | DIAGNOSTIC IMAGING REPORT ---
GALLBLADDER-ABD LIMITED CLINICAL HISTORY: epigastric abdominal pain radiating to chest TECHNIQUE: Ultrasound COMPARISON STUDY: None FINDINGS: Several small gallbladder polyps. No shadowing gallstones. Gallbladder wall top normal at 3 mm. Common bile duct 3 mm. Mild fatty infiltration of liver. Poorly seen pancreas due to overlying bowel content. Right kidney is negative for hydronephrosis. IMPRESSION: Several small gallbladder polyps. Mild fatty infiltration of liver. Otherwise negative study. The above report was generated using voice recognition software. It may contain grammatical, syntax or spelling errors. Electronically signed by: Mauricio Collazo M.D. 10/25/2017 6:50 PM Dictated Date/Time: 10/25/2017 6:49 PM
--- NOTE | 2017-10-25 19:04 | DIAGNOSTIC IMAGING REPORT ---
ABDOMEN 2VIEW W/PA CHEST RTN CLINICAL HISTORY: abd pain, nausea vomiting/constipation COMPARISON STUDY: No previous studies for comparison. FINDINGS: The soft tissues, psoas shadows, renal outlines and intestinal gas pattern appear normal. There is no evidence for bowel obstruction. There is no evidence for free intraperitoneal air. No abnormal abdominal calcifications are seen. A frontal view of the chest was performed and is unremarkable. IMPRESSION: Normal study. The above report was generated using voice recognition software. It may contain grammatical, syntax or spelling errors. Electronically signed by: Mauricio Collazo M.D. 10/25/2017 7:03 PM Dictated Date/Time: 10/25/2017 7:02 PM
[2017-10-25] MEDS ORDERED: PANTOprazole INJ 40 MG in SYRINGE 0 ML IV ONE (19:30)
[2017-10-25] MEDS ORDERED: PANT1TAB3 PO (19:50)
[2017-10-25] MEDS ORDERED: TRAMADOL HCL 50 MG HOME PACK PO ONE (20:00)
[2017-10-25 20:09] VITALS: BP 123/70; PULSE 72; O2SAT 99
== END 2017-10-25 20:10 | disposition home or self-care (01) ==
LOC: C.EDB 15:43
DX: R10.13 Epigastric pain (principal); R10.11 Right upper quadrant pain; F90.9 Attention-deficit hyperactivity disorder, unspecified type; Z82.49 Family history of ischemic heart disease and other diseases of the circulatory system; F17.210 Nicotine dependence, cigarettes, uncomplicated

== ENCOUNTER → 2017-11-11 | Day surgery (SDC) | payer OTHER ==
[2017-11-02 07:51] VITALS: BMI 25.0
[~2017-11-11] VITALS: Ht 175.3 cm; Wt 77.3 kg
[~2017-11-11] MED LIST changes: +DICY10CA12 PO; +FENTANYL CITRATE INJ 50 MCG/1 ML 2 ML VIAL IM ONE; +FENTANYL CITRATE INJ 50 MCG/1 ML 2 ML VIAL IV ONE; -IBUP-103 PO; +LIDOCAINE HCL 2% 2 ML VIAL (20MG/ML) ONE; +MIDAZOLAM HCL 1 MG/ML 2ML VIAL ONE; +ONDANSETRON INJ 2 MG/ML 2 ML VIAL ONE; +PROPOFOL IV EMULSION 10 MG/ML 20 ML VIAL IV ONE; +SODIUM CHLORIDE 0.9% 500ML 500 ML IV ONE
[2017-11-11 09:26] VITALS: Ht 175.3 cm; Wt 77.3 kg
[2017-11-11 09:35] VITALS: TEMP 36.7
--- NOTE | 2017-11-11 09:43 | Endo History and Physical ---
History & Physical Date of Service: Nov 11, 2017. Chief Complaint: N/V ABD PAIN Referring Physician: Naheed Vargas History of Present Illness 27 yo CM who presents for EGD secondary to abdominal pain, nausea and vomiting. Past Surgical History Hx Cardiac Surgery: No Hx Internal Defibrillator: No Hx Pacemaker: No Hx Abdominal Surgery: No Hx of Implantable Prosthesis: No Hx Post-Op Nausea and Vomiting: No Hx Cancer Surgery: No Hx Thoracic Surgery: No Hx Orthopedic: Yes (FINGER SURGERY) Hx Urinary Tract Surgery: No Family History None Social History Smoking Status: Current Some Day Smoker Hx Substance Use: No Hx Alcohol Use: Yes (OCCASIONALLY) Allergies Coded Allergies: Amphetamine (Verified Allergy, Unknown, RIDALIN->HIVES, 11/11/17) Dextroamphetamine (Verified Allergy, Unknown, RIDALIN-->HIVES, 11/11/17) Current Medications Reported Home Medications Medications Dose Route/Sig Max Daily Dose Days Date Category Dicyclomine Hcl 10 Mg Cap 1 Cap PO TID PRN 11/02/17 Reported Vital Signs Weight (Kilograms): 77.27 Height (Feet): 5 Height (Inches): 9 Date Time Temp Pulse Resp B/P (MAP) Pulse Ox O2 Delivery O2 Flow Rate FiO2 11/11/17 09:35 36.7 63 20 133/86 (102) 98 Room Air Physical Exam General Appearance: WD/WN, no apparent distress Respiratory/Chest: Auscultation: breath sounds normal Cardiovascular: Heart Auscultation: RRR Abdomen: Bowel Sounds: normal Inspection & Palpation: soft, non-distended, no tenderness, guarding & rebound Assessment and Plan Assessment: 27 yo CM who presents for EGD secondary to abdominal pain, nausea and vomiting. Plan: Proceed with EGD.
--- NOTE | 2017-11-11 10:09 | GI REPORT ---
Procedure Date: 11/11/2017 9:46 AM Procedure: Upper GI endoscopy Indications: Epigastric abdominal pain, Nausea with vomiting Medicines: Monitored Anesthesia Care Complications: No immediate complications. Estimated Blood Loss: Estimated blood loss: none. Procedure: Pre-Anesthesia Assessment: - Prior to the procedure, a History and Physical was performed, and patient medications and allergies were reviewed. The patient's tolerance of previous anesthesia was also reviewed. The risks and benefits of the procedure and the sedation options and risks were discussed with the patient. All questions were answered, and informed consent was obtained. Prior Anticoagulants: The patient has taken no previous anticoagulant or antiplatelet agents. ASA Grade Assessment: II - A patient with mild systemic disease. After reviewing the risks and benefits, the patient was deemed in satisfactory condition to undergo the procedure. After obtaining informed consent, the endoscope was passed under direct vision. Throughout the procedure, the patient's blood pressure, pulse, and oxygen saturations were monitored continuously. The On-site loaner was introduced through the mouth, and advanced to the second part of duodenum. The upper GI endoscopy was accomplished without difficulty. The patient tolerated the procedure well. Findings: The examined esophagus was normal. Localized moderate inflammation characterized by erythema was found in the gastric antrum. Biopsies were taken with a cold forceps for histology. The examined duodenum was normal. Biopsies for histology were taken with a cold forceps for evaluation of celiac disease. Impression: - Normal esophagus. - Gastritis. Biopsied. - Normal examined duodenum. Biopsied. Recommendation: - Resume previous diet. - Continue present medications. - Await pathology results. - Return to primary care physician as previously scheduled. Joseluis Llamas, DO 11/11/2017 10:08:48 AM This report has been signed electronically. Note Initiated On: 11/11/2017 9:46 AM I attest to the content of the Intraoperative Record and orders documented therein, exceptions below
--- NOTE | 2017-11-11 10:12 | Discharge Instructions ---
Endoscopy Patient Instructions Date / Procedure(s) Performed Nov 11, 2017. EGD Allergy Information Coded Allergies: Amphetamine (Verified Allergy, Unknown, RIDALIN->HIVES, 11/11/17) Dextroamphetamine (Verified Allergy, Unknown, RIDALIN-->HIVES, 11/11/17) Discharge Date / Findings Nov 11, 2017. Gastritis s/p biopsies Duodenal biopsies Medication Instructions OK to resume all medications today as prescribed Reported Home Medications Medications Dose Route/Sig Max Daily Dose Days Date Category Dicyclomine Hcl 10 Mg Cap 1 Cap PO TID PRN 11/02/17 Reported Provider Instructions Activity Restrictions - No exercising or heavy lifting for 24 hours. - Do not drink alcohol the day of the procedure. - Do not drive a car or operate machinery until the day after the procedure. - Do not make any important decisions or sign important papers in 24 hours after the procedure. Following Day: - Return to full activity which may include returning to work/school. Diet Start your diet with liquids and light foods (jello, soup, juice, toast). Then eat your usual diet if not nauseated. Treatment For Common After Affects For mild abdominal pain, bloating, or excessive gas: - Rest - Eat lightly - Lie on right side Follow-Up Information Follow-up with MELVIN Red as scheduled Anesthesia Information What You Should Know You have had a procedure that required some medicine to reduce anxiety and discomfort. This treatment is called moderate sedation. After receiving the treatment, you may be sleepy, but you will be able to breathe on your own. The effects of the treatment may last for several hours. Follow these instructions along with Activity/Diet recommendations noted above: * Do NOT do anything where dizziness or clumsiness would be dangerous. * Rest quietly at home today, then you can be up and about tomorrow. * Have a responsible person stay with you the rest of today. * You may have had an I.V. today. If so, you may take the dressing off later today. Recommendations Call your doctor if: * Trouble breathing * Continuous vomiting for more than 24 hours * Temperature above 101 degrees * Severe abdominal pain or bloating * Pain not relieved by pain medicine ordered * There is increased drainage or redness from any incision * A large amount of rectal bleeding greater than 2-3 tablespoons. (If you had a polyp/s removed or have hemorrhoids, a small amount of blood - from the rectum is to be expected.) * You have any unanswered questions or concerns. IN THE EVENT OF A SERIOUS EMERGENCY, GO TO THE NEAREST EMERGENCY ROOM Your discharge instructions were prepared by provider Joseluis Llamas. Patient Instructions Signature Page Tereso Duong Patient (or Guardian) Signature/Date: I have read and understand the instructions given to me by my caregivers. Caregiver/RN/Doctor Signature/Date: The above-named patient and/or guardian has received patient instructions on this date. + Original Patient Signature Page (only) stays with chart. Please make copy for patient.
[2017-11-11 10:41] VITALS: BP 137/89; PULSE 64; O2SAT 98
--- NOTE | 2017-11-11 11:26 | Anesthesiology Progress Note ---
Anesthesia Post Op Note Date & Time Nov 11, 2017 at 11:24 Vital Signs Pain Intensity: 8.5 Vital Signs Past 12 Hours Date Time Temp Pulse Resp B/P (MAP) Pulse Ox O2 Delivery O2 Flow Rate FiO2 11/11/17 10:41 64 18 137/89 (105) 98 Room Air 11/11/17 10:25 86 18 139/87 (104) 98 Room Air 11/11/17 10:10 75 16 118/59 (78) 96 Room Air 11/11/17 09:35 36.7 63 20 133/86 (102) 98 Room Air Notes Mental Status: alert / awake / arousable, participated in evaluation Pt Amnestic to Procedure: Yes Nausea / Vomiting: adequately controlled Pain: adequately controlled Airway Patency, RR, SpO2: stable & adequate BP & HR: stable & adequate Hydration State: stable & adequate Anesthetic Complications: no major complications apparent Patient complained of pain in throat but was able to swallow without difficulty. Given 50 mcg of fentanyl with improvement. Dr Llamas was aware of thoat pain and evaluated the patient before discharge.
== END | disposition home or self-care (01) ==
LOC: C.GI 09:14
PROVIDERS: ATTEND Internal Medicine
DX: K29.70 Gastritis, unspecified, without bleeding (principal); Z98.890 Other specified postprocedural states; F17.200 Nicotine dependence, unspecified, uncomplicated; Z88.8 Allergy status to other drugs, medicaments and biological substances

== ENCOUNTER 2018-04-20 22:24 | Emergency (ER) | payer SELFPAY ==
[~2018-04-20] VITALS: Ht 175.3 cm; Wt 92.4 kg
[~2018-04-20 22:24] MED LIST changes: -FENTANYL CITRATE INJ 50 MCG/1 ML 2 ML VIAL IM ONE; -FENTANYL CITRATE INJ 50 MCG/1 ML 2 ML VIAL IV ONE; -LIDOCAINE HCL 2% 2 ML VIAL (20MG/ML) ONE; -MIDAZOLAM HCL 1 MG/ML 2ML VIAL ONE; -ONDANSETRON INJ 2 MG/ML 2 ML VIAL ONE; -PROPOFOL IV EMULSION 10 MG/ML 20 ML VIAL IV ONE; -SODIUM CHLORIDE 0.9% 500ML 500 ML IV ONE
[2018-04-20 22:28] VITALS: TEMP 36.7; Ht 175.3 cm; Wt 92.4 kg
[2018-04-20] MEDS ORDERED: ONDANSETRON INJ 2 MG/ML 2 ML VIAL IV STA (22:54)
[2018-04-20] MEDS ORDERED: SODIUM CHLORIDE 0.9% 1000ML 1,000 ML IV STA (22:54)
[2018-04-20] MEDS ORDERED: KETOROLAC TROMETHAMINE 30 MG/ML VIAL IV STA (22:54)
[2018-04-20 23:15] LABS: BASO % 1.1 %; BASO ABS # 0.08 K/uL (0-0.2); EOS ABS # 0.42 K/uL (0-0.5); HEMATOCRIT 43.6 % (42-52); HEMOGLOBIN 15.3 g/dL (14.0-18.0); IG# 0.02 K/uL (0.00-0.02); LYMPH % 33.6 %; LYMPH ABS # 2.34 K/uL (1.2-3.4); MEAN CORPUSCULAR HEMOGLOBIN 29.5 pg (25-34); MEAN CORPUSCULAR HGB CONC 35.1 g/dl (32-36); MEAN PLATELET VOLUME 9.8 fL (7.4-10.4); MONO % 9.8 %; MONO ABS # 0.68 K/uL (0.11-0.59); NEUT % 49.2 %; NEUT ABS # 3.42 K/uL (1.4-6.5); PLATELET COUNT 253 K/uL (130-400); RED CELL DISTRIBUTION WIDTH CV 14.1 % (11.5-14.5); RED CELL DISTRIBUTION WIDTH SD 43.1 fL (36.4-46.3); WHITE BLOOD COUNT 6.96 K/uL (4.8-10.8)
[2018-04-20] MEDS ORDERED: IBUP-103 PO (23:42)
[2018-04-20 23:43] LABS: ALBUMIN 3.9 gm/dl (3.4-5.0); ALKALINE PHOSPHATASE 78 U/L (45-117); ALT/SGPT 39 U/L (12-78); AST/SGOT 21 U/L (15-37); BLOOD UREA NITROGEN 19 mg/dl (7-18); CALCIUM 8.6 mg/dl (8.5-10.1); CARBON DIOXIDE 24 mmol/L (21-32); CREATININE 1.14 mg/dl (0.60-1.40); GLUCOSE 89 mg/dl (70-99); LIPASE 100 U/L (73-393); POTASSIUM 4.2 mmol/L (3.5-5.1); SODIUM 138 mmol/L (136-145); TOTAL PROTEIN 7.5 gm/dl (6.4-8.2)
[2018-04-21] MEDS ORDERED: OPTIRAY 320 IV PRN
[2018-04-21] MEDS ORDERED: MoRPHine SULFATE 4 MG/ML 1 ML CARP\\VIAL IV STA (00:30)
--- NOTE | 2018-04-21 00:54 | EMERGENCY ROOM VISIT NOTE ---
History First contact with patient: 22:39 Chief Complaint: FLANK PAIN Stated Complaint: RIGHT SIDE STOMACH PAIN, SICKNESS, COLD SWEATS History of Present Illness The patient is a 28 year old male who presents to the Emergency Room with complaints of right-sided abdominal pain since 12 AM this morning. Pain described as cramping, ranging in severity 8 out of 10. Nothing makes it better or worse. It does not radiate. Patient had one episode of vomiting. No prior abdominal surgeries. Patient denies chest pain, dyspnea, fever, chills , back pain, urinary symptoms, diarrhea. He is time p.o. fluids but has a lack of appetite. Review of Systems An 10 system review of systems was completed with positives and pertinent negatives listed in the HPI. Past Medical/Surgical History Medical Problems: (1) ADHD (2) PROSTATITIS NOS Surgical Problems: (1) H/O neck surgery Family History FH: heart disease Hypertension Social History Smoking Status: Current Every Day Smoker Marital Status: single Occupation Status: unemployed Current/Historical Medications Scheduled PRN Ibuprofen Tab (Advil), 200-600 MG PO Q4H PRN for Pain or Fever Physical Exam Vital Signs Date Time Temp Pulse Resp B/P (MAP) Pulse Ox O2 Delivery O2 Flow Rate FiO2 04/20/18 23:30 159/101 04/20/18 23:24 89 16 97 Room Air 04/20/18 23:13 146/95 04/20/18 23:13 83 04/20/18 22:28 36.7 93 18 167/114 97 Room Air Physical Exam VITALS: Vitals are noted on the nurse's note and reviewed by myself. Vital signs hypertensive. GENERAL: White male, in no acute distress, nondiaphoretic, well-developed well- nourished. SKIN: The skin was without rashes, erythema, edema, or bruising. There is no tenting of the skin. Capillary reflex less than 2 seconds. HEAD: Normocephalic atraumatic. EARS: External auditory canals clear EYES: Pupils equal round and reactive to light and accommodation. Conjunctivae without injection, sclerae without icterus. Extraocular movements intact. NOSE: Patent, turbinates without inflammation or discharge. MOUTH: Mucous membranes moist. Pharynx without erythema or exudate. Uvula midline. Airway patent. Tongue does not deviate. NECK: Supple without nuchal rigidity. No lymphadenopathy. No thyromegaly. Cervical spine is nontender. No JVD. HEART: Regular rate and rhythm without murmurs gallops or rubs. LUNGS: Clear to auscultation bilaterally without wheezes, rales or rhonchi. No retractions or accessory muscle use. ABDOMEN: Positive bowel sounds x 4. Normal tympanic percussion. Soft, tender to palpation right mid and lower abdomen, without masses or organomegaly. So sign negative. No guarding or rebound tenderness. No CVA tenderness MUSCULOSKELETAL: No muscle atrophy, erythema, or edema noted. NEURO: Patient was alert and oriented to person place and time. Normal sensation to light and sharp touch. No focal neurological deficits. Medical Decision & Procedures Laboratory Results 04/20/18 23:00 Red Blood Count 5.19, Mean Corpuscular Volume 84.0, Mean Corpuscular Hemoglobin 29.5, Mean Corpuscular Hemoglobin Concent 35.1, Mean Platelet Volume 9.8, Neutrophils (%) (Auto) 49.2, Lymphocytes (%) (Auto) 33.6, Monocytes (%) (Auto) 9.8, Eosinophils (%) (Auto) 6.0, Basophils (%) (Auto) 1.1, Neutrophils # (Auto) 3.42, Lymphocytes # (Auto) 2.34, Monocytes # (Auto) 0.68, Eosinophils # (Auto) 0.42, Basophils # (Auto) 0.08 04/20/18 23:00 Test 04/20/18 23:00 White Blood Count 6.96 K/uL (4.8-10.8) Red Blood Count 5.19 M/uL (4.7-6.1) Hemoglobin 15.3 g/dL (14.0-18.0) Hematocrit 43.6 % (42-52) Mean Corpuscular Volume 84.0 fL (80-100) Mean Corpuscular Hemoglobin 29.5 pg (25-34) Mean Corpuscular Hemoglobin Concent 35.1 g/dl (32-36) Platelet Count 253 K/uL (130-400) Mean Platelet Volume 9.8 fL (7.4-10.4) Neutrophils (%) (Auto) 49.2 % Lymphocytes (%) (Auto) 33.6 % Monocytes (%) (Auto) 9.8 % Eosinophils (%) (Auto) 6.0 % Basophils (%) (Auto) 1.1 % Neutrophils # (Auto) 3.42 K/uL (1.4-6.5) Lymphocytes # (Auto) 2.34 K/uL (1.2-3.4) Monocytes # (Auto) 0.68 K/uL (0.11-0.59) Eosinophils # (Auto) 0.42 K/uL (0-0.5) Basophils # (Auto) 0.08 K/uL (0-0.2) RDW Standard Deviation 43.1 fL (36.4-46.3) RDW Coefficient of Variation 14.1 % (11.5-14.5) Immature Granulocyte % (Auto) 0.3 % Immature Granulocyte # (Auto) 0.02 K/uL (0.00-0.02) Urine Color YELLOW Urine Appearance CLEAR (CLEAR) Urine pH 6.0 (4.5-7.5) Urine Specific Narvon 1.026 (1.000-1.030) Urine Protein NEG (NEG) Urine Glucose (UA) NEG (NEG) Urine Ketones 1+ (NEG) Urine Occult Blood NEG (NEG) Urine Nitrite NEG (NEG) Urine Bilirubin NEG (NEG) Urine Urobilinogen NEG (NEG) Urine Leukocyte Esterase NEG (NEG) Anion Gap 10.0 mmol/L (3-11) Est Creatinine Clear Calc Drug Dose 108.3 ml/min Estimated GFR () 100.9 Estimated GFR (Non- 87.0 BUN/Creatinine Ratio 16.9 (10-20) Calcium Level 8.6 mg/dl (8.5-10.1) Total Bilirubin 0.2 mg/dl (0.2-1) Direct Bilirubin mg/dl (0-0.2) Aspartate Amino Transf (AST/SGOT) 21 U/L (15-37) Alanine Aminotransferase (ALT/SGPT) 39 U/L (12-78) Alkaline Phosphatase 78 U/L (45-117) Total Protein 7.5 gm/dl (6.4-8.2) Albumin 3.9 gm/dl (3.4-5.0) Lipase 100 U/L (73-393) Chemistry Specimen Hemolysis Medications Administered Medications (Trade) Dose Ordered Sig/Bambi Route Start Time Stop Time Status Last Admin Dose Admin Ketorolac Tromethamine (Toradol Inj) 10 mg NOW STAT IV 04/20/18 22:54 04/20/18 22:56 DC 04/20/18 23:16 10 MG Ondansetron HCl (Zofran Inj) 4 mg NOW STAT IV 04/20/18 22:54 04/20/18 22:56 DC 04/20/18 23:18 4 MG Sodium Chloride 1,000 ml @ 999 mls/hr Q1H1M STAT IV 04/20/18 22:54 04/20/18 23:54 DC 04/20/18 23:13 999 MLS/HR Morphine Sulfate (MoRPHine SULFATE INJ) 4 mg NOW STAT IV 04/21/18 00:30 04/21/18 00:31 DC 04/21/18 00:33 4 MG ED Course Prior records/ancillary studies reviewed. Triage Nursing notes reviewed. Additional history obtained from family. The patient's history was concerning for abdominal pain. Differential diagnosis: Etiologies such as appendicitis, diverticulitis, PUD, biliary pathology, UTI, pancreatitis, obstruction, mesenteric ischemia, aortic pathology, infections, inflammatory bowel disease, renal colic, as well as others were entertained. Physical examination findings: As above. ER treatment provided: Toradol, Zofran, IV fluids On reassessment the patient felt better. Diagnostics interpreted by me: The labs revealed no worrisome leukocytosis or electrolyte abnormality. Negative urine Imaging studies: CT ABDOMEN & PELVIS With Contrast: The appendix is normal. Multiple nonspecific subcentimeter periaortic lymph nodes. Nonspecific subcentimeter mesenteric lymph nodes with mild nicol mesentery. Consider mesenteric panniculitis. Radiologist: Kenny Dominguez DO Study ready at 00:12 and initial results transmitted at 00:35 Critical Value Communications Clear Time Type Notes 04/21/18 00:47 Call From [facility] GELA PHAN Exam and history seem consistent with mesenteric adenitis. Patient felt better after being medicated as above. He did not have acute abdomen on exam. I did speak to the radiologist and states the patient has mesenteric adenitis/ panniculitis which is the same thing for him. Patient was afebrile and nontoxic. Repeat abdominal exam was benign. He had no leukocytosis. He was advised to rest, stay well-hydrated and follow-up family can a few days here in the ER sooner for abdominal pain, fevers, vomiting, worsening signs or symptoms or as needed. By the evaluation outlined above emergent etiologies such as appendicitis, diverticulitis, PUD, biliary pathology, UTI, pancreatitis, obstruction, mesenteric ischemia, aortic pathology, inflammatory bowel disease , renal colic, as well as others were deemed relatively unlikely. The pt informed about the findings as listed above. All questions were answered and pleased with the treatment. Return instructions were outlined and the patient was discharged in stable condition. Referral: The patient was referred back to their primary care physician for follow-up in 2 to 3 days for a recheck of the current condition. Case reviewed with my attending The chart was completed utilizing [employer] Speech voice recognition software. Grammatical errors, random word insertions, pronoun errors, and incomplete sentences are an occassional consequence of this system due to software limitations, ambient noise, and hardware issues. Any formal questions or concerns about the content, text, or information contained within the body of this dictation should be directly addressed to the physician assistant oceanographer for clarification. Medical Decision As above Medication Reconcilliation Current Medication List: was personally reviewed by me Blood Pressure Screening Patient's blood pressure: Elevated blood pressure Blood pressure disposition: Elevated BP felt to be situational, Referred to PCP Impression Primary Impression: Mesenteric adenitis Departure Information Dispostion Home / Self-Care Condition GOOD Referrals No Doctor, Assigned (PCP) Patient Instructions My [facility] Additional Instructions DO NOT drive, drink alcohol, operate machinery, or perform dangerous activities today. You were given medications in the ER that can affect your ability to safely function or operate a vehicle. Ibuprofen(Motrin, Advil) may be used for fever or pain. Use 600mg every six hours as needed. Take with food. Avoid using more than 2400mg in a 24 hour period. Do not use 2400mg per day for more than three consecutive days without physician direction. Prolonged inappropriate use can lead to stomach upset or ulcers. (AND/OR) Acetaminophen(Tylenol) may be used for fever or pain. Use 1000mg every six hours as needed. Avoid using more than 3000mg in a 24 hour period. Zofran 4mg: Take one every six hours as needed for nausea. Avoid alcohol, operating machinery or dangerous equipment, working on ladders or roofs, DRIVING , or situations where being under the influence may be dangerous. Rest and drink plenty of fluids as tolerated. Slow sips of water or sports drinks are recommended instead of large amounts all at once. Continue current medications. Once your stomach is settled start with a clear liquid diet (jello, soup broth, etc.) and then advance as tolerated. You should avoid full, heavy meals for about 24 hrs from the time your symptoms resolved. Return to the ER immediately for worsening or persistent abdominal pain, vomiting, fevers, chest pains, difficulty breathing, black or bloody stools, worsening of your condition, or as needed. Follow up with your primary physician in 24 hours for a recheck of your current condition.
[2018-04-21 01:00] VITALS: BP 145/108; PULSE 74; O2SAT 98
[2018-04-21] MEDS ORDERED: ONDANSETRON HOME PACK 4MG OD TAB PO ONE (01:00)
[2018-04-21] MEDS ORDERED: OXYCODONE IR HOME PACK PO ONE (01:00)
--- NOTE | 2018-04-21 07:42 | DIAGNOSTIC IMAGING REPORT ---
CT OF THE ABDOMEN AND PELVIS WITH CONTRAST CLINICAL HISTORY: Right-sided abdominal pain. Evaluate for acute appendicitis. COMPARISON STUDY: CT of the abdomen and pelvis June 22, 2017 and right upper quadrant ultrasound and abdominal series October 25, 2017. TECHNIQUE: Following IV administration of 91 mL of Optiray-320, axial images of the abdomen and pelvis were obtained from the lung bases to the proximal femurs. Images were reviewed in the axial, sagittal, and coronal planes. IV contrast was administered without complication. A dose lowering technique was utilized adhering to the principles of ALARA. CT DOSE: 662.89 mGy.cm FINDINGS: Lung bases are clear. There is possible fatty infiltration of the liver. No hepatic lesions are present and there is no biliary ductal dilatation. The spleen, adrenal glands, kidneys and pancreas are normal. Minimal mesenteric infiltration is of doubtful significance. No enlarged abdominal or pelvic lymph nodes are noted. The caliber and wall thickness of small and large bowel are normal. The appendix is normal. No ascites is present. No suspicious osseous lesions are present. There is no hydronephrosis or hydroureter. IMPRESSION: 1. Normal appendix. No bowel obstruction. 2. Minimal mesenteric infiltration, a finding of questionable significance. This may reflect mesenteric panniculitis. Electronically signed by: Stuart Zhang M.D. 04/21/2018 7:41 AM Dictated Date/Time: 04/21/2018 7:35 AM
== END 2018-04-21 01:21 | disposition home or self-care (01) ==
LOC: C.EDB 22:26 → C.EDC 04-21 01:21
DX: I88.0 Nonspecific mesenteric lymphadenitis (principal); R03.0 Elevated blood-pressure reading, without diagnosis of hypertension; F17.200 Nicotine dependence, unspecified, uncomplicated